=== PATIENT | male | born 1985 | race Caucasian/White ===

== ENCOUNTER 2018-07-31 08:25 | Emergency (ER) | payer MEDICAID ==
[~2018-07-31] VITALS: Ht 172.7 cm; Wt 79.5 kg
[2018-07-31 08:27] VITALS: BP 156/91
[2018-07-31] MEDS ORDERED: AZITHROMYCIN 250 MG TABLET PO ONE (10:00)
[2018-07-31] MEDS ORDERED: CefTRIAXone SODIUM 1 GM/VIAL IM ONE (10:00)
[2018-07-31 10:17] LABS: APPEARANCE,URINE CLEAR (CLEAR); BILIRUBIN,URINE NEGATIVE (NEGATIVE); GLUCOSE, URINE (UA) NEGATIVE (NEGATIVE); KETONES,URINE NEGATIVE (NEGATIVE); LEUKOCYTE ESTERASE ,URINE SMALL (NEGATIVE); NITRATE,URINE NEGATIVE (NEGATIVE); OCCULT BLOOD,URINE NEGATIVE (NEGATIVE); PROTEIN,URINE NEGATIVE (NEGATIVE); UROBILINOGEN,URINE 0.2 mg/dL (<=1.0)
[2018-07-31 10:27] LABS: BACTERIA,URINE None Seen /HPF (None Seen); SQUAMOUS EPITHELIAL CELL,UR Few /LPF (None Seen); WBC,URINE 0-2 /HPF (0-5)
== END 2018-07-31 10:44 | disposition home or self-care (01) ==
LOC: EMS 08:27
DX: N34.2 Other urethritis (principal); N48.1 Balanitis; F12.90 Cannabis use, unspecified, uncomplicated; Z91.013 Allergy to seafood
CPT/HCPCS: 81001; 81002; 87491; 87591; 99283; J0696

== ENCOUNTER 2018-08-02 14:58 | Emergency (ER) | payer MEDICAID | END 2018-08-02 16:00 | disposition left against medical advice (07) | LOC: EMS 14:59 | DX: Z76.0 Encounter for issue of repeat prescription (principal); Z53.21 Procedure and treatment not carried out due to patient leaving prior to being seen by health care provider ==

== ENCOUNTER 2018-08-05 00:31 | Emergency (ER) | payer MEDICAID ==
[~2018-08-05] VITALS: Ht 172.7 cm; Wt 80.0 kg
[2018-08-05 02:30] VITALS: BP 132/75
[2018-08-05] MEDS ORDERED: LORazepam 2 MG TABLET PO ONE (02:45)
[2018-08-05] MEDS ORDERED: QUEtiapine FUMARATE 100 MG TABLET PO ONE (02:45)
== END 2018-08-05 03:14 | disposition home or self-care (01) ==
LOC: EMS 00:32
DX: F20.0 Paranoid schizophrenia (principal); F41.9 Anxiety disorder, unspecified; F17.210 Nicotine dependence, cigarettes, uncomplicated; F12.90 Cannabis use, unspecified, uncomplicated; Z91.013 Allergy to seafood

== ENCOUNTER 2018-09-26 12:48 | Emergency (ER) | payer MEDICAID ==
[~2018-09-26] VITALS: Ht 172.7 cm; Wt 86.4 kg
[2018-09-26] MEDS ORDERED: ANTIDEPRESSANTS PO (13:09)
[2018-09-26 15:48] VITALS: BP 128/98
[2018-09-28] MEDS ORDERED: HYDR-4031 PO (20:19)
[2018-09-28] MEDS ORDERED: QUET25TA PO (20:19)
== END 2018-09-26 17:46 | disposition home or self-care (01) ==
LOC: EMS 12:50
DX: Z02.89 Encounter for other administrative examinations (principal); F32.9 Major depressive disorder, single episode, unspecified; F41.9 Anxiety disorder, unspecified; F12.90 Cannabis use, unspecified, uncomplicated; Z91.018 Allergy to other foods

== ENCOUNTER 2021-10-14 12:17 | Emergency (ER) | payer MEDICAID ==
[~2021-10-14] VITALS: Ht 175.3 cm; Wt 86.4 kg
[~2021-10-14 12:17] MED LIST: HYDR-4808 PO; QUET25TA PO
[2021-10-14 12:18] VITALS: BP 131/86
[2021-10-14] MEDS ORDERED: NALT380S2 IM (12:24)
[2021-10-14] MEDS ORDERED: LORazepam 1 MG TABLET PO ONE (15:45)
== END 2021-10-14 18:40 | disposition home or self-care (01) ==
LOC: EMS 12:21
DX: F41.9 Anxiety disorder, unspecified (principal); F12.90 Cannabis use, unspecified, uncomplicated; F32.9 Major depressive disorder, single episode, unspecified; F15.10 Other stimulant abuse, uncomplicated
CPT/HCPCS: 99283